=== PATIENT | female | born 1985 | race Two or more races ===

== ENCOUNTER 2018-11-09 17:04 | Emergency (ER) | payer MEDICAID ==
[2018-11-09] MEDS ORDERED: NS 0.9% 1000 ML** 1,000 ML IV ONE (19:09)
--- NOTE | 2018-11-09 19:21 | ED ---
Back Pain - HPI Summary HPI Summary: This patient is a 33 year old F presenting to [facility] with a chief complaint of lower back pain. The back pain is aggravated by laying down for too long. Patient reports vomiting (since night of 11/08/18), nausea (for 4 hours), increased frequency of urination, BLANCO, dry mouth and nml BM. Symptoms alleviated by antacids. Pt resides inpatient at [facility] for polysubstance abuse. Last menstrual period was 09/28/18. Pt is diabetic. - History of Current Complaint Chief Complaint: EDNauseaVomitDiarrh Stated Complaint: BACK PAIN,HIP PAIN,SWEATING PER PT Time Seen by Provider: 11/09/18 18:57 Hx Obtained From: Patient Hx Last Menstrual Period: 09/28/18 Onset/Duration: Lasting Hours, Still Present Onset/Duration: Started Hours Ago, Still Present Timing: Constant Severity Initially: Severe Severity Currently: Severe Pain Intensity: 9 Pain Scale Used: 0-10 Numeric Aggravating Symptom(s): Other - laying down Associated Signs And Symptoms: Positive: Other - vomiting, nausea, increased frequency of urinations, BLANCO, dry mouth - Allergies/Home Medications Allergies/Adverse Reactions: Allergies Allergy/AdvReac Type Severity Reaction Status Date / Time No Known Allergies Allergy Verified 11/09/18 17:17 Home Medications: Home Medications Albuterol inh POWDER (NF) [Proair Respiclick] 2 puff INH Q6HR PRN 11/09/18 [ History Confirmed 11/09/18] Ammonium Lactate/Emu Oil 1 applic TOPICAL BID 11/09/18 [History Confirmed ] Atorvastatin* [Lipitor 40 MG*] 40 mg PO DAILY 11/09/18 [History Confirmed ] Buprenorphine HCl/Naloxone HCl [Suboxone 2 mg-0.5 mg Sl Film] 1 film PO DAILY [History Confirmed 11/09/18] FLUoxetine CAP* [Prozac CAP*] 20 mg PO DAILY 11/09/18 [History Confirmed ] Fluconazole 150 MG TAB* [Diflucan 150 MG TAB*] 150 mg PO DAILY 11/09/18 [ History Confirmed 11/09/18] Gabapentin CAP(*) [Neurontin 300 CAP(*)] 600 mg PO TID 11/09/18 [History Confirmed 11/09/18] Hydrochlorothiazide TAB* [Hydrodiuril TAB*] 12.5 mg PO DAILY 11/09/18 [History Confirmed 11/09/18] Ketoconazole 1 applic TOPICAL SEE INSTRUCTIONS 11/09/18 [History Confirmed 11/09] Losartan TAB* [Cozaar TAB*] 50 mg PO DAILY 11/09/18 [History Confirmed 11/09/18] Mag-Oxide 400 mg PO BID 11/09/18 [History Confirmed 11/09/18] Nicotine GUM* 4MG FRUIT FLAVOR [Nicotine GUM*] 4 mg PO Q2HR PRN 11/09/18 [ History Confirmed 11/09/18] Prazosin CAP* [Minipress CAP*] 1 mg PO BEDTIME 11/09/18 [History Confirmed 11/09] Propranolol TAB* [Inderal TAB*] 20 mg PO TID 11/09/18 [History Confirmed ] Ranitidine TAB (NF) [Zantac TAB (NF)] 300 mg PO DAILY 11/09/18 [History Confirmed 11/09/18] amLODIPine TAB* [Norvasc 5 mg TAB*] 5 mg PO DAILY 11/09/18 [History Confirmed ] glipiZIDE TAB* [Glucotrol TAB*] 2.5 mg PO BID 11/09/18 [History Confirmed ] metFORMIN* [Glucophage 1000 MG TAB *] 1,000 mg PO BID 11/09/18 [History Confirmed 11/09/18] traZODone TAB* [Desyrel TAB*] 100 mg PO BEDTIME 11/09/18 [History Confirmed ] PMH/Surg Hx/FS Hx/Imm Hx Sensory History: Denies: Hx Legally Blind, Hx Deafness Opthamlomology History: Denies: Hx Legally Blind EENT History: Denies: Hx Deafness Infectious Disease History: No Infectious Disease History: Denies: Traveled Outside the [place] in Last 30 Days - Family History Known Family History: Positive: Hypertension, Diabetes - Social History Alcohol Use: Occasionally Substance Use Type: Reports: None Substance Use Comment - Amount & Last Used: CARS Smoking Status (MU): Light Every Day Tobacco Smoker Review of Systems Positive: Other - pos - dry mouth Positive: Vomiting, Nausea Positive: frequency Positive: Other - pos - back pain Positive: Headache All Other Systems Reviewed And Are Negative: Yes Physical Exam - Summary Physical Exam Summary: Appearance: The patient is well-nourished in no acute distress and in no acute pain. Skin: The skin is warm and dry and skin color reflects adequate perfusion. HEENT: The head is normocephalic and atraumatic. The pupils are equal and reactive. The conjunctivae are clear and without drainage. Nares are patent and without drainage. Mouth reveals moist mucous membranes and the throat is without erythema and exudate. The external ears are intact. The ear canals are patent and without drainage. The tympanic membranes are intact. Neck: The neck is supple with full range of motion and non-tender. There are no carotid bruits. There is no neck vein distension. Respiratory: Chest is non-tender. Lungs are clear to auscultation and breath sounds are symmetrical and equal. Cardiovascular: Heart is regular rate and rhythm. There is no murmur or rub auscultated. There is no peripheral edema and pulses are symmetrical and equal. Abdomen: The abdomen is soft and non-tender. There are normal bowel sounds heard in all four quadrants and there is no organomegaly palpated. Musculoskeletal: Extremities are non-tender with full range of motion. There is good capillary refill. There is no peripheral edema or calf tenderness elicited. Tender in para lumbar area, positive straight leg raise. Neurological: Patient is alert and oriented to person, place and time. The patient has symmetrical motor strength in all four extremities. Cranial nerves are grossly intact. Deep tendon reflexes are symmetrical and equal in all four extremities. Psychiatric: The patient has an appropriate affect and does not exhibit any anxiety or depression. Triage Information Reviewed: Yes Vital Signs On Initial Exam: Initial Vitals Temp Pulse Resp BP Pulse Ox 96.9 F 77 18 120/73 96 11/09/18 17:15 11/09/18 17:15 11/09/18 17:15 11/09/18 17:15 11/09/18 17:15 Vital Signs Reviewed: Yes Diagnostics - Vital Signs Vital Signs Temp Pulse Resp BP Pulse Ox 11/09/18 17:15 96.9 F 77 18 120/73 96 - Laboratory Result Diagrams: 11/09/18 19:22 11/09/18 19:22 Lab Statement: Any lab studies that have been ordered have been reviewed, and results considered in the medical decision making process. Re-Evaluation - Re-Evaluation First Eval Re-Evaluation Time: 21:14 Comment: Discussed plan of care with pt. Back Pain Course/Dx - Course Course Of Treatment: Ms. Burnham presents with a myriad of complaints. It boils down to low back pain worse with movement and exertion. She also complains of nausea. She has been at [facility] for a couple of weeks for polysubstance use. She was seen by the nurse practitioner today and sent over for evaluation. She was nontoxic in appearance with stable vitals. She was given Toradol and Zofran here and recommended that she follow up with Olivia Miller at [facility]. Labs and urine were negative here. - Diagnoses Provider Diagnoses: Low back pain Discharge - Sign-Out/Discharge Documenting (check all that apply): Patient Departure - Discharge Patient Received Moderate/Deep Sedation with Procedure: No - Discharge Plan Condition: Stable Disposition: HOME Patient Education Materials: Back Pain (ED) Referrals: Blu Comer [employer]ODUCE SERVICE TEAM MEMBER [Primary Care Provider] - [facility] - Residential Facility [Outside] Additional Instructions: Follow up with Olivia Miller within 2-3 days. RETURN TO ED FOR ANY NEW OR WORSENING SYMPTOMS. - Billing Disposition and Condition Condition: STABLE Disposition: Home - Attestation Statements Document Initiated by Jamesibe: Yes Documenting Scribe: Lyndsay Lawler Provider For Whom Rich is Documenting (Include Credential): Dr. Sukhdev Torres MD Scribe Attestation: Lyndsay Ferrara scribed for Dr. Sukhdev Torres MD on 11/09/18 at 2131. Scribe Documentation Reviewed: Yes Provider Attestation: The documentation as recorded by the Lyndsay guevara accurately reflects the service I personally performed and the decisions made by me, Dr. Sukhdev Torers MD Status of Scribe Document: Viewed
[2018-11-09 19:35] LABS: ABS Eosinophils 0.4 10^3/ul (0-0.6); ABS Lymphocytes 1.9 10^3/ul (1.0-4.8); ABS Monocytes 0.7 10^3/ul (0-0.8); ABS Neutrophils 7.7 10^3/ul (1.5-7.7); Hematocrit 29 % (35-47); Hemoglobin 9.2 g/dL (12.0-16.0); Lymphocyte % 17.9 %; Mean Corpuscular HGB Conc 31 g/dL (31-36); Mean Corpuscular Hemoglobin 23 pg (27-31); Mean Corpuscular Volume 73 fL (80-97); Mean Platelet Volume 7.6 fL (7.4-10.4); Platelet Count 278 10^3/uL (150-450); Red Blood Count 4.02 10^6 /uL (3.70-4.87); Red Cell Distribution Width 19 % (10-15); White Blood Count 10.8 10^3/uL (3.5-10.8)
[2018-11-09 19:51] LABS: ALT 77 U/L (7-52); AST 122 U/L (13-39); Albumin 3.9 g/dL (3.2-5.2); Albumin/Globulin Ratio 1.2 (1-3); Alkaline Phosphatase 70 U/L (34-104); Anion Gap 7 mmol/L (2-11); BUN/Creatinine Ratio 27.3 (8-20); Blood Urea Nitrogen 21 mg/dL (6-24); C Reactive Protein 18.13 mg/L (<8.01); CO2 Carbon Dioxide 28 mmol/L (22-32); Calcium 9.6 mg/dL (8.6-10.3); Chloride 101 mmol/L (101-111); EGFR African American 105.1 (>60); EGFR Non-African American 86.9 (>60); Globulin 3.2 g/dL (2-4); Glucose 135 mg/dL (70-100); Potassium 4.3 mmol/L (3.5-5.0); Sodium 136 mmol/L (135-145); Total Protein 7.1 g/dL (6.4-8.9)
[2018-11-09 19:56] LABS: HCG Pregnancy < 0.60 mIU/mL
[2018-11-09] MEDS ORDERED: Ketorolac INJ* 30 MG/ML 1 ML VIAL IV PUSH ONE (19:57)
[2018-11-09] MEDS ORDERED: Ondansetron INJ* 2 MG/ML VIAL IV ONE (20:11)
[2018-11-09 20:16] LABS: Urine Appearance Clear; Urine Bilirubin Negative (Negative); Urine Blood Negative (Negative); Urine Color Yellow; Urine Glucose Negative (Negative); Urine Ketones Negative (Negative); Urine Nitrite Negative (Negative); Urine Protein Negative (Negative); Urine Specific Gravity 1.021 (1.010-1.030); Urine Urobilinogen Negative (Negative)
[2018-11-09 21:42] VITALS: BP 148/86
== END 2018-11-09 21:41 | disposition home or self-care (01) ==
LOC: ED 17:04
DX: M54.5 Low back pain (principal); F17.210 Nicotine dependence, cigarettes, uncomplicated; Z79.84 Long term (current) use of oral hypoglycemic drugs; Z79.899 Other long term (current) drug therapy
CPT/HCPCS: 36415; 80053; 81003; 83605; 84702; 85025; 86140; 96361; 96374; 96375; 99283; J1885; J2405

== ENCOUNTER 2018-12-06 11:14 | Emergency (ER) | payer OTHER ==
[2018-12-06 11:31] VITALS: BP 120/52
--- NOTE | 2018-12-06 12:31 | UC ---
Lower Extremity/Ankle HPI - HPI Summary HPI Summary: pt tripped last night an bent R 3rd toe causing pain. went to sleep but awoke in night with pain and saw black and blue color on toe. today toe painful - History of Current Complaint Chief Complaint: UCLowerExtremity Stated Complaint: TOE INJURY Time Seen by Provider: 12/06/18 11:36 Hx Obtained From: Patient Hx Last Menstrual Period: 11/15/18 ?: No Onset/Duration: Sudden Onset Severity Initially: Moderate Severity Currently: Severe Pain Intensity: 10 Aggravating Factor(s): Standing, Ambulation Alleviating Factor(s): Rest Able to Bear Weight: Yes - Allergies/Home Medications Allergies/Adverse Reactions: Allergies Allergy/AdvReac Type Severity Reaction Status Date / Time No Known Allergies Allergy Verified 12/06/18 11:31 Home Medications: Home Medications Mantoloking Carbonate [Mantoloking Carbonate 300 mg cap] 300 mg PO BID 12/06/18 [ History Confirmed 12/06/18] PMH/Surg Hx/FS Hx/Imm Hx Previously Healthy: Yes Endocrine History: Dyslipidemia Cardiovascular History: Hypertension Respiratory History: Asthma Psychological History: Anxiety, Depression, Other - MH issues - Surgical History Surgical History: Yes Surgery Procedure, Year, and Place: 2 c sections. gallbladder removed - Family History Known Family History: Positive: Hypertension, Diabetes - Social History Occupation: Unemployed Lives: With Family Alcohol Use: None Substance Use Type: None Substance Use Comment - Amount & Last Used: CARS Smoking Status (MU): Light Every Day Tobacco Smoker Type: Cigarettes Review of Systems All Other Systems Reviewed And Are Negative: Yes Constitutional: Positive: Negative Skin: Positive: Bruising - L 3rd toe Respiratory: Positive: Negative Cardiovascular: Positive: Negative Psychological: Positive: Negative Is Patient Immunocompromised?: No Physical Exam Triage Information Reviewed: Yes Appearance: Well-Appearing, Well-Nourished, Obese Vital Signs: Initial Vital Signs Temp 97.8 F 12/06/18 11:22 Pulse 92 12/06/18 11:22 Resp 16 12/06/18 11:22 BP 120/52 12/06/18 11:22 Pulse Ox 96 12/06/18 11:22 Vital Signs Reviewed: Yes Respiratory Exam: Normal Cardiovascular Exam: Normal Musculoskeletal: Positive: Strength Intact, ROM Intact - affected toe with pain Psychological Exam: Normal Skin: Positive: Other - bruising affected toe Diagnostics - Radiology No standard instances Radiology Interpretation Completed By: Radiologist - Utilities Operator: Moise June C, ([id number]) Community Worker: CHARY (NUANCE) Report Date: 11:33:00 Report Status: Final Start of Report Content = Patient Name: HESHAM VOSS Medical Record#: [id number] Ordering Physician: Lux Beckett MD Acct.#: [id number] : 1985 Age: 33 Sex: F Location : [facility] Exam Date: 12/06/18 1133 ADM Status: REG ER Order Information: FOOT LEFT 3+ VWS Accession Number: [id number] CPT: 65281 Indication: LEFT second toe pain and swelling following injury. Comparison: No relevant prior exams available on the [facility] PACS for comparison. Technique: AP, lateral, and oblique views LEFT foot. REPORT AND IMPRESSION: #. Negative for fracture or malalignment. Preserved joint spaces. Lower Extremity Course/Dx - Differential Dx/Diagnosis Differential Diagnosis/HQI/PQRI: Contusion, Fracture (Closed), Strain Provider Diagnosis: Contusion Discharge ED - Sign-Out/Discharge Documenting (check all that apply): Patient Departure All imaging exams completed and their final reports reviewed: Yes - No fracture - Discharge Plan Condition: Good Disposition: HOME Patient Education Materials: Contusion in Adults (ED) Referrals: Blu Comer NP [Primary Care Provider] - 3 Days (if no better) Additional Instructions: elevate foot and apply ice wear post op shoe for 1 week use over the counter ibuprofen or Tylenol as directed for pain if needed - Billing Disposition and Condition Condition: GOOD Disposition: Home
== END 2018-12-06 12:55 | disposition home or self-care (01) ==
LOC: UCEAST 11:14
DX: S90.121A Contusion of right lesser toe(s) without damage to nail, initial encounter (principal); W19.XXXA Unspecified fall, initial encounter; Y92.9 Unspecified place or not applicable; E78.5 Hyperlipidemia, unspecified; I10 Essential (primary) hypertension; J45.909 Unspecified asthma, uncomplicated; F41.9 Anxiety disorder, unspecified; F32.9 Major depressive disorder, single episode, unspecified
CPT/HCPCS: 99213; G0463

== ENCOUNTER 2018-12-09 15:01 | Emergency (ER) | payer OTHER ==
[2018-12-09] MEDS ORDERED: NS 0.9% 1000 ML** 1,000 ML IV ONE (15:16)
--- NOTE | 2018-12-09 15:45 | ED ---
Altered Mental Status - HPI Summary HPI Summary: Pt is a 33 y/o F presenting to the ED brought in by EMS for altered mental status. She has had many recent medication changes, including starting Suboxone in the last couple of days and Wellbutrin today, on top of her Metformin, Glipizide, and [place]. She reports recent falls, sometimes d/t prior injury to her L foot, and sometimes just falling off of her bed. She reports fatigue, shaking, confusion, and headaches. She denies other injury or syncope. Denies fever or infectious symptoms. Went to for foot pain and had neg XR, is wearing boot. Patient states she is having mechanical falls from her foot. Currently AAOx3. Denies drug use (hx meth, cocaine, heroin use). - History Of Current Complaint Chief Complaint: EDGeneral Stated Complaint: GENERAL ILLNESS Time Seen by Provider: 12/09/18 15:12 Hx Obtained From: Patient Hx Last Menstrual Period: 11/15/18 Onset/Duration: Still Present, Gradually Timing: Constant, Lasting Days Severity Initially: Moderate Severity Currently: Moderate Character: Confusion, Lethargy Aggravating Factor(s): Medication Change Alleviating Factor(s): Nothing Associated Signs And Symptoms: Positive: Headache - Allergies/Home Medications Allergies/Adverse Reactions: Allergies Allergy/AdvReac Type Severity Reaction Status Date / Time No Known Allergies Allergy Verified 12/06/18 11:31 Home Medications: Home Medications Acetaminophen TAB* [Tylenol TAB*] 650 mg PO Q6H PRN 12/09/18 [History Confirmed 12/09/18] Ammonium Lactate 12% [Lac-Hydrin 12 %] 12 % TOPICAL BID 12/09/18 [History Confirmed 12/09/18] Amoxicillin/Clavulanate TAB* [Augmentin TAB 875*] 875 mg PO BID 12/09/18 [ History Confirmed 12/09/18] Buprenorphine HCl/Naloxone HCl [Suboxone] 3 film SL DAILY 12/09/18 [History Confirmed 12/09/18] Calcium Carbonate CHEW TAB* [Tums*] 1,000 mg PO DAILY PRN 12/09/18 [History Confirmed 12/09/18] Cetirizine* [ZyrTEC 10 MG TAB*] 10 mg PO DAILY 12/09/18 [History Confirmed 12/09] Chlorhexidine MOUTHWASH 0.12%* [Peridex Mouth Wash 0.12%*] 10 ml PO BID [History Confirmed 12/09/18] Docusate CAP* [Colace Cap*] 100 mg PO BID PRN 12/09/18 [History Confirmed ] Eucalyptus/Menthol [[place] Cough Drops] 1 zuly PO Q2HR PRN 12/09/18 [History Confirmed 12/09/18] Ibuprofen TAB* [Motrin TAB* 800 MG] 800 mg PO TID PRN 12/09/18 [History Confirmed 12/09/18] Imipramine (NF) 25 - 50 mg PO BEDTIME 12/09/18 [History Confirmed 12/09/18] Lidocaine [Aspercreme Lidocaine Max] 4 % TOPICAL DAILY PRN 12/09/18 [History Confirmed 12/09/18] [place] Carbonate TAB* 300 mg PO BID 12/09/18 [History Confirmed 12/09/18] Magnesium Hydroxide LIQ* [Milk of Magnmyaco LIQ*] 30 ml PO DAILY PRN 12/09/18 [ History Confirmed 12/09/18] Magnesium Oxide TAB* [MagOx 400 TAB*] 400 mg PO BID 12/09/18 [History Confirmed 12/09/18] Melatonin 5 - 10 mg PO BEDTIME 12/09/18 [History Confirmed 12/09/18] Mupirocin 2% CREAM* [Bactroban 2% CREAM*] 1 applic TOPICAL BID 12/09/18 [ History Confirmed 12/09/18] Nicotine PATCH 21 MG/24 HR* 21 mg TRANSDERM DAILY 12/09/18 [History Confirmed ] Saline NASAL SPRAY 0.65%* [Sodium Chloride 0.65% Nasal [place]*] 2 spray BOTH NARES DAILY PRN 12/09/18 [History Confirmed 12/09/18] buPROPion TAB* [Wellbutrin TAB*] 100 mg PO DAILY 12/09/18 [History Confirmed ] cloNIDine TAB* [Catapres 0.1 MG TAB*] 0.1 mg PO TID PRN 12/09/18 [History Confirmed 12/09/18] guaiFENesin ER TAB [Mucinex*] 600 - 1,200 mg PO BID PRN 12/09/18 [History Confirmed 12/09/18] PMH/Surg Hx/FS Hx/Imm Hx Previously Healthy: Yes Endocrine/Hematology History: Reports: Hx Diabetes Respiratory History: Reports: Hx Asthma Sensory History: Denies: Hx Legally Blind, Hx Deafness Opthamlomology History: Denies: Hx Legally Blind Psychiatric History: Reports: Hx Depression, Hx Bipolar Disorder, Hx Substance Abuse - Surgical History Surgery Procedure, Year, and Place: 2 c sections. gallbladder removed Infectious Disease History: No Infectious Disease History: Denies: Traveled Outside the [place] in Last 30 Days - Family History Known Family History: Positive: Hypertension, Diabetes - Social History Alcohol Use: None Hx Substance Use: Yes Substance Use Type: Reports: Cocaine, Heroin Substance Use Comment - Amount & Last Used: CARS Hx Tobacco Use: Yes Smoking Status (MU): Light Every Day Tobacco Smoker Type: Cigarettes Review of Systems Positive: Fatigue, Other - shaking, medication changes Musculoskeletal: Negative - head injury Positive: Other - frequent falls Neurological: Other - confusion Positive: Headache. Negative: Syncope All Other Systems Reviewed And Are Negative: Yes Physical Exam - Summary Physical Exam Summary: Constitutional: Well-developed, Well-nourished, Alert. (-) Distressed. Somnolent Skin: Warm, Dry. L 2nd and 3rd toe ecchymosis HENT: Normocephalic; Atraumatic Eyes: Conjunctiva normal Neck: Musculoskeletal ROM normal neck. (-) JVD, (-) Stridor, (-) Nuchal rigidity Cardio: Rhythm regular, rate normal, Heart sounds normal; Intact distal pulses; Radial pulses are 2+ and symmetric. (-) Murmur Pulmonary/Chest wall: Effort normal. (-) Respiratory distress, (-) Wheezes, (-) Rales Abd: Soft, (-) tenderness, (-) Distension, (-) Guarding, (-) Rebound Musculoskeletal: (-) Edema. Left foot tenderness Lymph: (-) Cervical adenopathy Neuro: Alert, Oriented x3 Psych: Mood and affect Normal Triage Information Reviewed: Yes Vital Signs On Initial Exam: Initial Vitals Temp Pulse Resp BP Pulse Ox 98.4 F 85 12 130/70 95 12/09/18 15:04 12/09/18 15:04 12/09/18 15:04 12/09/18 15:04 12/09/18 15:04 Vital Signs Reviewed: Yes - Letty Coma Scale Best Eye Response: 4 - Spontaneous Best Motor Response: 6 - Obeys Commands Best Verbal Response: 5 - Oriented Coma Scale Total: 15 Diagnostics - Vital Signs Vital Signs Temp Pulse Resp BP Pulse Ox 12/09/18 15:14 85 18 130/70 93 12/09/18 15:04 98.4 F 85 12 130/70 95 - Laboratory Lab Results: Lab Results 12/09/18 Range/Units 15:13 POC Glucose (mg/dL) 132 H (70-100) mg/dL Result Diagrams: 12/09/18 15:36 12/09/18 15:36 Lab Statement: Any lab studies that have been ordered have been reviewed, and results considered in the medical decision making process. - CT Brain CT CT Interpretation Completed By: Radiologist Summary of CT Findings: No acute intracranial abnormality. ED physician has reviewed this report. - EKG 1526 Cardiac Rate: NL EKG Rhythm: Sinus Rhythm ST Segment: Normal Ectopy: None Summary of EKG Findings: EKG at 1526 shwos NSR at 86bpm with no STEMI. Re-Evaluation - Re-Evaluation 1st re-eval Re-Evaluation Time: 17:57 Change: Improved Comment: Pt feels better. She's comfortable going home. I explained the results to her, she will be having something to eat and will take a walk around the ED and then be d/c'ed. Altered Mental Statu Course/Dx - Course Course Of Treatment: 33 year-old female with a history of substance use, diabetes, hypertension, bipolar disorder on lithium, presents with fatigue and intermittent falls. - Physical exam w obese female, intermittently somnolent but no acute distress. Arouses, able to walk. Ecchymosis to second and third toe of left foot negative x-ray at . - Blood sugar here fine, do not suspect hypoxia or hypoglycemia as cause of fatigue. We'll check labs including electrolytes, CBC to assess for underlying infection, lithium level as patient was reportedly on lithium, also check head CT given reported fall and possible loss of consciousness w continued fatigue. EKG sinus. Suspect that her symptoms are secondary to multiple medication use as she reports she has had many of her medications changed recently. - Diagnoses Provider Diagnoses: Falls, Fatigue Discharge ED - Sign-Out/Discharge Documenting (check all that apply): Patient Departure Patient Received Moderate/Deep Sedation with Procedure: No - Discharge Plan Condition: Stable Disposition: HOME Patient Education Materials: Fall Prevention (ED) Referrals: Blu Comer NP [Primary Care Provider] - Additional Instructions: You were seen in the emergency department for falls. Your results were all within normal limits. If any studies were not completed at the time of discharge you will be called with the relevant results. Please follow up with your primary care doctor in the next 2-3 days and return to the emergency department for worsening or concerning symptoms. It was a pleasure taking care of you today. - Billing Disposition and Condition Condition: STABLE Disposition: Home - Attestation Statements Document Initiated by Scribe: Yes Documenting Scribe: Tisha Mcdowell Provider For Whom Rich is Documenting (Include Credential): Eliud Hutchins MD. Scribe Attestation: Tisha Ferrara, scribed for Eliud Hutchins MD. on 12/09/18 at 2000. Scribe Documentation Reviewed: Yes Provider Attestation: The documentation as recorded by the scribeTisha accurately reflects the service I personally performed and the decisions made by , Eliud Hutchins MD. Status of Scribe Document: Viewed
[2018-12-09 16:04] LABS: ABS Eosinophils 0.4 10^3/ul (0-0.6); ABS Lymphocytes 1.9 10^3/ul (1.0-4.8); ABS Neutrophils 6.2 10^3/ul (1.5-7.7); Hematocrit 31 % (35-47); Lymphocyte % 20.4 %; Mean Corpuscular HGB Conc 32 g/dL (31-36); Mean Corpuscular Hemoglobin 24 pg (27-31); Mean Corpuscular Volume 74 fL (80-97); Platelet Count 278 10^3/uL (150-450); Red Blood Count 4.17 10^6 /uL (3.70-4.87); Red Cell Distribution Width 17 % (10-15); White Blood Count 9.6 10^3/uL (3.5-10.8)
[2018-12-09 16:06] LABS: ALT 42 U/L (7-52); AST 30 U/L (13-39); Albumin 3.9 g/dL (3.2-5.2); Albumin/Globulin Ratio 1.1 (1-3); Alkaline Phosphatase 74 U/L (34-104); Anion Gap 6 mmol/L (2-11); BUN/Creatinine Ratio 34.5 (8-20); Blood Urea Nitrogen 20 mg/dL (6-24); CO2 Carbon Dioxide 30 mmol/L (22-32); Calcium 9.6 mg/dL (8.6-10.3); Chloride 101 mmol/L (101-111); EGFR African American 145.8 (>60); EGFR Non-African American 120.5 (>60); Globulin 3.4 g/dL (2-4); Glucose 139 mg/dL (70-100); Potassium 3.7 mmol/L (3.5-5.0); Sodium 137 mmol/L (135-145); Total Protein 7.3 g/dL (6.4-8.9)
[2018-12-09 16:09] LABS: HCG Pregnancy < 0.60 mIU/mL
[2018-12-09 17:19] LABS: Lithium 0.65 mmol/L (0.6-1.2)
[2018-12-09 17:37] LABS: Urine Appearance Clear; Urine Bilirubin Negative (Negative); Urine Blood Negative (Negative); Urine Color Yellow; Urine Glucose Negative (Negative); Urine Ketones Negative (Negative); Urine Nitrite Negative (Negative); Urine Protein Negative (Negative); Urine Specific Gravity 1.015 (1.010-1.030); Urine Urobilinogen Negative (Negative)
[2018-12-09 17:51] LABS: Urine Benzodiazepine Screen None Detected (None Detect); Urine Opiates Screen None Detected (None Detect)
[2018-12-09 18:22] VITALS: BP 149/102
== END 2018-12-09 18:21 | disposition home or self-care (01) ==
LOC: ED 15:01
DX: R53.83 Other fatigue (principal); R51 Headache; Z91.81 History of falling; E11.9 Type 2 diabetes mellitus without complications; J45.909 Unspecified asthma, uncomplicated; F31.9 Bipolar disorder, unspecified; F19.10 Other psychoactive substance abuse, uncomplicated; F17.210 Nicotine dependence, cigarettes, uncomplicated; Z79.899 Other long term (current) drug therapy
CPT/HCPCS: 36415; 70450; 80053; 80178; 80307; 81003; 84702; 85025; 93005; 96360; 99283

== ENCOUNTER 2018-12-27 13:15 | Emergency (ER) | payer OTHER ==
[2018-12-27 13:53] LABS: ABS Eosinophils 0.7 10^3/ul (0-0.6); ABS Lymphocytes 2.1 10^3/ul (1.0-4.8); ABS Monocytes 0.8 10^3/ul (0-0.8); ABS Neutrophils 9.2 10^3/ul (1.5-7.7); Eosinophil % 5.1 %; Hematocrit 32 % (35-47); Hemoglobin 9.8 g/dL (12.0-16.0); Lymphocyte % 16.5 %; Mean Corpuscular HGB Conc 31 g/dL (31-36); Mean Corpuscular Hemoglobin 23 pg (27-31); Mean Corpuscular Volume 74 fL (80-97); Mean Platelet Volume 7.5 fL (7.4-10.4); Nucleated Red Blood Cells % 0.1; Platelet Count 334 10^3/uL (150-450); Red Blood Count 4.25 10^6 /uL (3.70-4.87); Red Cell Distribution Width 17 % (10-15); White Blood Count 12.8 10^3/uL (3.5-10.8)
[2018-12-27 14:06] LABS: ALT 20 U/L (7-52); AST 21 U/L (13-39); Albumin 3.8 g/dL (3.2-5.2); Albumin/Globulin Ratio 1.3 (1-3); Alkaline Phosphatase 77 U/L (34-104); Anion Gap 5 mmol/L (2-11); BUN/Creatinine Ratio 15.4 (8-20); Blood Urea Nitrogen 10 mg/dL (6-24); CO2 Carbon Dioxide 28 mmol/L (22-32); Calcium 9.3 mg/dL (8.6-10.3); Chloride 102 mmol/L (101-111); EGFR African American 127.8 (>60); EGFR Non-African American 105.6 (>60); Glucose 164 mg/dL (70-100); Magnesium 1.8 mg/dL (1.9-2.7); Potassium 3.5 mmol/L (3.5-5.0); Sodium 135 mmol/L (135-145); Total Protein 6.8 g/dL (6.4-8.9)
[2018-12-27 14:11] LABS: HCG Pregnancy < 0.60 mIU/mL
[2018-12-27 14:17] LABS: Lithium 0.86 mmol/L (0.6-1.2)
[2018-12-27] MEDS ORDERED: NS 0.9% 1000 ML** 1,000 ML IV ONE (14:24)
--- NOTE | 2018-12-27 17:20 | ED ---
Substance Abuse/Use - HPI Summary HPI Summary: This patient is a 33-year-old female presenting to the ED with concern for multiple falls. Patient states she is on any medications and currently residing at [facility]. She states she is losing her balance. Denies any difficulty talking, facial drooping, weakness or other stroke like symptoms. She states she has never had this before. Patient has been on multiple medications which were recently added to her regimen and she states she is unsure which medication has been causing her to have these multiple falls. She denies any abdominal pain, urinary symptoms, chest pain or shortness of breath. Patient is very lethargic on arrival and is difficult to arouse. Denies any fevers, sweats, chills. She states she is otherwise healthy. - History Of Current Complaint Chief Complaint: EDGeneral Stated Complaint: FALL Time Seen by Provider: 12/27/18 13:18 Hx Obtained From: Patient Hx Last Menstrual Period: 11/15/18 ?: No Severity Initially: Mild Severity Currently: Mild Aggravating Factor(s): Nothing Alleviating Factor(s): Nothing Associated Signs And Symptoms: Negative - Allergies/Home Medications Allergies/Adverse Reactions: Allergies Allergy/AdvReac Type Severity Reaction Status Date / Time No Known Allergies Allergy Verified 12/06/18 11:31 PMH/Surg Hx/FS Hx/Imm Hx Previously Healthy: Yes Endocrine/Hematology History: Reports: Hx Diabetes Respiratory History: Reports: Hx Asthma Sensory History: Denies: Hx Legally Blind, Hx Deafness Opthamlomology History: Denies: Hx Legally Blind Psychiatric History: Reports: Hx Depression, Hx Bipolar Disorder, Hx Substance Abuse - Surgical History Surgery Procedure, Year, and Place: 2 c sections. gallbladder removed - Immunization History Hx Pertussis Vaccination: No Immunizations Up to Date: Yes Infectious Disease History: No Infectious Disease History: Denies: Traveled Outside the [place] in Last 30 Days - Family History Known Family History: Positive: Hypertension, Diabetes - Social History Occupation: Unemployed Lives: Alone - [facility] [facility] [place] [facility] Alcohol Use: None Hx Substance Use: Yes Substance Use Type: Reports: Cocaine, Heroin Substance Use Comment - Amount & Last Used: CARS Hx Tobacco Use: Yes Smoking Status (MU): Former Smoker Type: Cigarettes Review of Systems Positive: Fatigue. Negative: Fever, Chills, Skin Diaphoresis Negative: Palpitations, Chest Pain Negative: Shortness Of Breath, Cough Negative: Arthralgia, Myalgia Negative: Rash, Bruising Positive: Weakness. Negative: Headache, Paresthesia, Numbness, Slurred Speech Psychological: Normal All Other Systems Reviewed And Are Negative: Yes Physical Exam Triage Information Reviewed: Yes Vital Signs On Initial Exam: Initial Vitals Temp Pulse Resp BP Pulse Ox 98.3 F 76 16 130/62 98 12/27/18 13:15 12/27/18 13:15 12/27/18 13:15 12/27/18 13:15 12/27/18 13:15 Vital Signs Reviewed: Yes Appearance: Positive: Well-Appearing, Well-Nourished, Obese Skin: Positive: Warm, Skin Color Reflects Adequate Perfusion Head/Face: Positive: Normal Head/Face Inspection Eyes: Positive: Conjunctiva Clear Neck: Positive: Supple, No Lymphadenopathy Respiratory/Lung Sounds: Positive: Clear to Auscultation, Breath Sounds Present Cardiovascular: Positive: RRR, Pulses are Symmetrical in both Upper and Lower Extremities Musculoskeletal: Positive: Strength/ROM Intact Neurological: Positive: Speech Normal Psychiatric: Positive: Affect/Mood Appropriate Procedures - Sedation Patient Received Moderate/Deep Sedation with Procedure: No Diagnostics - Vital Signs Vital Signs Temp Pulse Resp BP Pulse Ox 12/27/18 16:01 19 12/27/18 16:00 19 101/53 12/27/18 15:30 17 149/84 12/27/18 15:01 20 12/27/18 15:00 20 132/84 12/27/18 14:44 78 16 93/61 96 12/27/18 14:30 75 89/75 90 12/27/18 14:28 79 94 12/27/18 13:15 98.3 F 76 16 130/62 98 - Laboratory Lab Results: Lab Results 12/27/18 12/27/18 12/27/18 Range/Units 13:33 13:33 13:33 WBC 12.8 H (3.5-10.8) 10^3/uL RBC 4.25 (3.70-4.87) 10^6 /uL Hgb 9.8 L (12.0-16.0) g/dL Hct 32 L (35-47) % MCV 74 L (80-97) fL MCH 23 L (27-31) pg MCHC 31 (31-36) g/dL RDW 17 H (10-15) % Plt Count 334 (150-450) 10^3/uL MPV 7.5 (7.4-10.4) fL Neut % (Auto) 72.1 % Lymph % (Auto) 16.5 % [place] % (Auto) 6.1 % Eos % (Auto) 5.1 % Baso % (Auto) 0.2 % Absolute Neuts (auto) 9.2 H (1.5-7.7) 10^3/ul Absolute Lymphs (auto) 2.1 (1.0-4.8) 10^3/ul Absolute Monos (auto) 0.8 (0-0.8) 10^3/ul Absolute Eos (auto) 0.7 H (0-0.6) 10^3/ul Absolute Basos (auto) 0.0 (0-0.2) 10^3/ul Absolute Nucleated RBC 0.0 10^3/ul Nucleated RBC % 0.1 Sodium 135 (135-145) mmol/L Potassium 3.5 (3.5-5.0) mmol/L Chloride 102 (101-111) mmol/L Carbon Dioxide 28 (22-32) mmol/L Anion Gap 5 (2-11) mmol/L BUN 10 (6-24) mg/dL Creatinine 0.65 (0.51-0.95) mg/dL Est GFR ( Amer) 127.8 (>60) Est GFR (Non-Af Amer) 105.6 (>60) BUN/Creatinine Ratio 15.4 (8-20) Glucose 164 H (70-100) mg/dL Lactic Acid 2.4 H* (0.5-2.0) mmol/L Calcium 9.3 (8.6-10.3) mg/dL Magnesium 1.8 L (1.9-2.7) mg/dL Total Bilirubin 0.30 (0.2-1.0) mg/dL AST 21 (13-39) U/L ALT 20 (7-52) U/L Alkaline Phosphatase 77 (34-104) U/L C-Reactive Protein 18.00 H (<8.01) mg/L Total Protein 6.8 (6.4-8.9) g/dL Albumin 3.8 (3.2-5.2) g/dL Globulin 3.0 (2-4) g/dL Albumin/Globulin Ratio 1.3 (1-3) Lipase 27 (11.0-82.0) U/L Beta HCG, Quant < 0.60 mIU/mL [place] 0.86 (0.6-1.2) mmol/L Result Diagrams: 12/27/18 13:33 12/27/18 13:33 Lab Statement: Any lab studies that have been ordered have been reviewed, and results considered in the medical decision making process. Course/Dx - Course Course Of Treatment: Physical examination, patient is difficult to arouse morbidly obese. Patient states she is typically difficult to arouse due to her many medications. She is sleeping on arrival and sleeping during examination. She denies any other symptoms other than multiple falls. She states she is falling because she is so tired and she has many medications at this time. Symptoms are not aggravated or alleviated with anything. Symptoms are not worse or better at a specific time of day. She has not tried to discontinue any medications to assess for improvement. Labs obtained are fairly unremarkable. No signs of falls, trauma, ecchymosis. Lungs CTA. RRR. I discussed with the patient the importance of follow-up with her PCP to adjust any medications necessary which are causing her to be fatigued contributing to her multiple falls. - Diagnoses Provider Diagnoses: Medication reaction, Fatigue, Falls Discharge ED - Sign-Out/Discharge Documenting (check all that apply): Patient Departure - Discharge Plan Condition: Stable Disposition: HOME Patient Education Materials: Weakness (ED), Fatigue (ED) Referrals: Tomer Grady MD [Medical Doctor] - Blu Comer NP [Primary Care Provider] - Additional Instructions: Please follow up with Olivia Tapia about your medications You may be having adverse reactions to these If you continue to feel shaky, you may need to see a neurologist. I have given you a referral - Billing Disposition and Condition Condition: STABLE Disposition: Home
[2018-12-27 17:21] VITALS: BP 121/69
== END 2018-12-27 17:26 | disposition home or self-care (01) ==
LOC: ED 13:15
DX: R53.83 Other fatigue (principal); J45.909 Unspecified asthma, uncomplicated; F32.9 Major depressive disorder, single episode, unspecified; F31.9 Bipolar disorder, unspecified; Z87.891 Personal history of nicotine dependence; F19.10 Other psychoactive substance abuse, uncomplicated
CPT/HCPCS: 36415; 80053; 80178; 83605; 83690; 83735; 84702; 85025; 86140; 96360; 99283

== ENCOUNTER 2018-12-28 17:51 | Emergency (ER) | payer OTHER ==
[2018-12-28 18:52] LABS: ABS Eosinophils 0.5 10^3/ul (0-0.6); ABS Lymphocytes 2.2 10^3/ul (1.0-4.8); ABS Monocytes 0.6 10^3/ul (0-0.8); ABS Neutrophils 5.7 10^3/ul (1.5-7.7); Eosinophil % 5.7 %; Hematocrit 30 % (35-47); Hemoglobin 9.6 g/dL (12.0-16.0); Lymphocyte % 24.2 %; Mean Corpuscular HGB Conc 32 g/dL (31-36); Mean Corpuscular Hemoglobin 24 pg (27-31); Mean Corpuscular Volume 74 fL (80-97); Mean Platelet Volume 7.4 fL (7.4-10.4); Platelet Count 269 10^3/uL (150-450); Red Blood Count 4.07 10^6 /uL (3.70-4.87); Red Cell Distribution Width 17 % (10-15)
[2018-12-28 19:10] LABS: Albumin 3.5 g/dL (3.2-5.2); Albumin/Globulin Ratio 1.3 (1-3); BUN/Creatinine Ratio 13.8 (8-20); C Reactive Protein 15.34 mg/L (<8.01); EGFR African American 145.8 (>60); EGFR Non-African American 120.5 (>60); Globulin 2.8 g/dL (2-4); Potassium 3.7 mmol/L (3.5-5.0); Total Bilirubin 0.2 mg/dL (0.2-1.0); Total Protein 6.3 g/dL (6.4-8.9)
[2018-12-28] MEDS ORDERED: Ketorolac INJ* 30 MG/ML 1 ML VIAL IM ONE (19:17)
[2018-12-28] MEDS ORDERED: Cyclobenzaprine TAB* 10 MG PO ONE (19:18)
--- NOTE | 2018-12-28 19:25 | ED ---
Back Pain - HPI Summary HPI Summary: Patient [facility] complains of acute on chronic back pain after 2 falls today. Pain bilateral lower back, worse with walking and standing. Patient states she has been having difficulty walking and keeping her balance. Patient was seen here 12/27 for imbalance symptoms and discharged with directions to follow up with primary care regarding new medications. Patient denies any other pain, injury or symptoms. Medical history is DM, asthma, HTN. - History of Current Complaint Chief Complaint: EDBackInjuryPain Stated Complaint: BACK PAIN PER EMS Time Seen by Provider: 12/28/18 18:21 Hx Obtained From: Patient Hx Last Menstrual Period: 11/15/18 Onset/Duration: Sudden Onset Onset/Duration: Started Hours Ago Timing: Constant Back Pain Location: Is Discrete @ Severity Initially: Severe Severity Currently: Severe Pain Intensity: 9 Pain Scale Used: 0-10 Numeric Character: Dull, Aching, Throbbing Aggravating Symptom(s): Movement, Lifting, Bending Alleviating Symptom(s): Rest, Position Associated Signs And Symptoms: Positive: Negative - Allergies/Home Medications Allergies/Adverse Reactions: Allergies Allergy/AdvReac Type Severity Reaction Status Date / Time No Known Allergies Allergy Verified 12/06/18 11:31 Home Medications: Home Medications Albuterol inh POWDER (NF) [Proair Respiclick] 2 puff INH Q6HR PRN 12/28/18 [ History Confirmed 12/28/18] Buprenorphine HCl/Naloxone HCl [Bupreno-Nalox 2-0.5 mg Sl Film] 3 each SL DAILY 12/28/18 [History Confirmed 12/28/18] FLUoxetine CAP* [PROzac CAP*] 40 mg PO QAM 12/28/18 [History Confirmed 12/28/18] Hydrochlorothiazide TAB* [Hydrodiuril TAB*] 12.5 mg PO QAM 12/28/18 [History Confirmed 12/28/18] Lidocaine [Aspercreme Lidocaine Max] 4 % TOPICAL DAILY PRN 12/28/18 [History Confirmed 12/28/18] [place] Carbonate TAB* 300 mg PO BID 12/28/18 [History Confirmed 12/28/18] [place] Carbonate TAB* 600 mg PO BEDTIME 12/28/18 [History Confirmed 12/28/18] Prazosin CAP* [Minipress CAP*] 1 mg PO BEDTIME 12/28/18 [History Confirmed 12/28] Prazosin CAP* [Minipress CAP*] 2 mg PO BEDTIME 12/28/18 [History Confirmed 12/28] PMH/Surg Hx/FS Hx/Imm Hx Endocrine/Hematology History: Reports: Hx Diabetes Cardiovascular History: Denies: Hx Pacemaker/ICD Respiratory History: Reports: Hx Asthma History: Denies: Hx Dialysis Sensory History: Denies: Hx Legally Blind, Hx Deafness Opthamlomology History: Denies: Hx Eye Prosthesis, Hx Legally Blind Neurological History: Denies: Hx Dementia Psychiatric History: Reports: Hx Depression, Hx Bipolar Disorder, Hx Substance Abuse - Surgical History Surgery Procedure, Year, and Place: 2 c sections. gallbladder removed - Immunization History Immunizations Up to Date: Yes Infectious Disease History: No Infectious Disease History: Denies: Traveled Outside the [place] in Last 30 Days - Family History Known Family History: Positive: Hypertension, Diabetes - Social History Alcohol Use: None Hx Substance Use: Yes Substance Use Type: Reports: Cocaine, Heroin Substance Use Comment - Amount & Last Used: CARS Hx Tobacco Use: Yes Smoking Status (MU): Former Smoker Type: Cigarettes Review of Systems Constitutional: Negative Eyes: Negative ENT: Negative Cardiovascular: Negative Respiratory: Negative Gastrointestinal: Negative Genitourinary: Negative Musculoskeletal: Other Skin: Negative Neurological: Negative Psychological: Normal All Other Systems Reviewed And Are Negative: Yes Physical Exam - Summary Physical Exam Summary: No ecchymosis, erythema, deformity, swelling, mass noted to back. Tenderness to bilateral paraspinal muscles and lumbar spine. PMS intact distally in bilateral lower extremities. Triage Information Reviewed: Yes Vital Signs On Initial Exam: Initial Vitals Temp Pulse Resp BP Pulse Ox 98.4 F 76 18 103/46 96 12/28/18 17:58 12/28/18 17:58 12/28/18 17:58 12/28/18 17:58 12/28/18 17:58 Vital Signs Reviewed: Yes Appearance: Positive: Well-Appearing Skin: Positive: Warm Head/Face: Positive: Normal Head/Face Inspection Eyes: Positive: Normal Neck: Positive: Supple Respiratory/Lung Sounds: Positive: Clear to Auscultation Cardiovascular: Positive: Normal Abdomen Description: Positive: Nontender Musculoskeletal: Positive: Normal Neurological: Positive: Normal Psychiatric: Positive: Normal AVPU Assessment: Alert - [place]ty Coma Scale Best Eye Response: 4 - Spontaneous Best Motor Response: 6 - Obeys Commands Best Verbal Response: 5 - Oriented Coma Scale Total: 15 Procedures - Sedation Patient Received Moderate/Deep Sedation with Procedure: No Diagnostics - Vital Signs Vital Signs Temp Pulse Resp BP Pulse Ox 12/28/18 17:58 98.4 F 76 18 103/46 96 - Laboratory Lab Results: Lab Results 12/28/18 12/28/18 Range/Units 18:39 18:39 WBC 9.0 (3.5-10.8) 10^3/uL RBC 4.07 (3.70-4.87) 10^6 /uL Hgb 9.6 L (12.0-16.0) g/dL Hct 30 L (35-47) % MCV 74 L (80-97) fL MCH 24 L (27-31) pg MCHC 32 (31-36) g/dL RDW 17 H (10-15) % Plt Count 269 (150-450) 10^3/uL MPV 7.4 (7.4-10.4) fL Neut % (Auto) 62.9 % Lymph % (Auto) 24.2 % [place] % (Auto) 6.9 % Eos % (Auto) 5.7 % Baso % (Auto) 0.3 % Absolute Neuts (auto) 5.7 (1.5-7.7) 10^3/ul Absolute Lymphs (auto) 2.2 (1.0-4.8) 10^3/ul Absolute Monos (auto) 0.6 (0-0.8) 10^3/ul Absolute Eos (auto) 0.5 (0-0.6) 10^3/ul Absolute Basos (auto) 0.0 (0-0.2) 10^3/ul Absolute Nucleated RBC 0.0 10^3/ul Nucleated RBC % 0.0 Sodium 138 (135-145) mmol/L Potassium 3.7 (3.5-5.0) mmol/L Chloride 105 (101-111) mmol/L Carbon Dioxide 28 (22-32) mmol/L Anion Gap 5 (2-11) mmol/L BUN 8 (6-24) mg/dL Creatinine 0.58 (0.51-0.95) mg/dL Est GFR ( Amer) 145.8 (>60) Est GFR (Non-Af Amer) 120.5 (>60) BUN/Creatinine Ratio 13.8 (8-20) Glucose 151 H (70-100) mg/dL Calcium 9.0 (8.6-10.3) mg/dL Total Bilirubin 0.20 (0.2-1.0) mg/dL AST 18 (13-39) U/L ALT 18 (7-52) U/L Alkaline Phosphatase 69 (34-104) U/L C-Reactive Protein 15.34 H (<8.01) mg/L Total Protein 6.3 L (6.4-8.9) g/dL Albumin 3.5 (3.2-5.2) g/dL Globulin 2.8 (2-4) g/dL Albumin/Globulin Ratio 1.3 (1-3) Result Diagrams: 12/28/18 18:39 12/28/18 18:39 Lab Statement: Any lab studies that have been ordered have been reviewed, and results considered in the medical decision making process. Back Pain Course/Dx - Course Course Of Treatment: Patient from [employer] complains of acute on chronic back pain after 2 falls today. Pain bilateral lower back, worse with walking and standing. Patient states she has been having difficulty walking and keeping her balance. Patient was seen here 12/27 for imbalance symptoms and discharged with directions to follow up with primary care regarding new medications. Patient denies any other pain, injury or symptoms. Medical history is DM, asthma, HTN. Vital signs within normal limits. Patient's symptoms improved with Toradol 30 mg IM and lidocaine patch. Rx for lidocaine patch and Flexeril. - Diagnoses Provider Diagnoses: Fall, Back pain Discharge ED - Sign-Out/Discharge Documenting (check all that apply): Patient Departure - Discharge Plan Condition: Stable Disposition: HOME Prescriptions: Cyclobenzaprine TAB* [Flexeril 10 MG TAB*] 10 mg PO TID PRN 4 Days #12 tab PRN Reason: Spasms Lidocaine PATCH 5%* [Lidoderm 5% Patch*] 1 patch TRANSDERM DAILY 4 Days #4 patch Patient Education Materials: Acute Low Back Pain (ED) Referrals: Blu Comer NP [Primary Care Provider] - Additional Instructions: Take ibuprofen for back pain. Use lidocaine patches as directed if needed for back pain. Take muscle relaxers as directed for spasm if needed. Follow-up with primary care. - Billing Disposition and Condition Condition: STABLE Disposition: Home
[2018-12-28] MEDS ORDERED: Lidocaine PATCH 5%* 1 PATCH ONE (19:43)
[2018-12-28] MEDS ORDERED: Lidocaine PATCH 5%* 1 PATCH TRANSDERM SCH (20:00)
[2018-12-28 20:06] VITALS: BP 118/65
[2018-12-28] MEDS ORDERED: Lidocaine Patch REMOVE* 1 NOTE MISC SCH (21:00)
== END 2018-12-28 20:03 | disposition home or self-care (01) ==
LOC: ED 17:51
DX: M54.9 Dorsalgia, unspecified (principal); W19.XXXA Unspecified fall, initial encounter; Y92.9 Unspecified place or not applicable; E11.9 Type 2 diabetes mellitus without complications; J45.909 Unspecified asthma, uncomplicated; F31.9 Bipolar disorder, unspecified; Z87.891 Personal history of nicotine dependence; Z90.49 Acquired absence of other specified parts of digestive tract; Z79.899 Other long term (current) drug therapy
CPT/HCPCS: 36415; 80053; 85025; 86140; 96372; 99283; A9270-GY; J1885